=== PATIENT | female | born 1930 | race Caucasian/White ===

== ENCOUNTER 2017-05-31 10:00 | Emergency (ER) | payer MEDICAID, MEDICARE ==
[~2017-05-31] VITALS: Ht 152.4 cm; Wt 60.9 kg
[2017-05-31] MEDS ORDERED: FISH OIL PO (10:10)
[2017-05-31] MEDS ORDERED: VIT D PO (10:10)
[2017-05-31] MEDS ORDERED: ACETAMINOPHEN 325 MG TABLET PO ONE (12:15)
[2017-05-31] MEDS ORDERED: PERTUSS(ACELL),DIPH,TET VAC/PF 0.5 ML VIAL IM ONE (12:15)
[2017-05-31] MEDS ORDERED: HYDROCODONE/ACETAMINOPHEN 5-325 MG TABLET PO ONE (12:30)
[2017-05-31 12:40] LABS: BASOPHILS # (AUTO) 0.05 K/uL (0.00-0.20); BASOPHILS % (AUTO) 0.4 % (0.0-2.0); EOSINOPHILS # (AUTO) 0.26 K/uL (0.00-0.70); HEMATOCRIT 41.9 % (36-46); HEMOGLOBIN 13.7 g/dL (12.0-16.0); LYMPHOCYTES # (AUTO) 1.6 K/uL (1.0-4.8); LYMPHOCYTES % (AUTO) 14.6 % (22.0-44.0); MEAN CORPUSCULAR HEMOGLOBIN 30.1 pg (26.0-34.0); MEAN CORPUSCULAR HGB CONC 32.6 G/dL (31.0-37.0); MEAN CORPUSCULAR VOLUME 92 fL (80-100); MONOCYTES # (AUTO) 0.5 K/uL (0.1-1.0); MONOCYTES % (AUTO) 4.4 % (2.0-9.0); NEUTROPHILS # (AUTO) 8.8 K/uL (1.8-7.7); NEUTROPHILS % (AUTO) 78.3 % (40.0-70.0); PLATELET COUNT (AUTO) 256 K/uL (150-450); RED BLOOD CELL COUNT(AUTO) 4.54 MIL/uL (4.00-5.20); RED CELL DISTRIBUTION WIDTH 13.7 % (11.5-14.5)
[2017-05-31 12:59] LABS: CALCIUM, TOTAL 9.5 mg/dL (8.8-10.5); CREATININE 1.17 mg/dL (0.60-1.30); POTASSIUM 4.1 mmol/L (3.5-5.1)
[2017-05-31 13:06] LABS: ALBUMIN 3.6 g/dL (3.4-5.0); BILIRUBIN,TOTAL 0.4 mg/dL (0.1-1.0); TOTAL PROTEIN, SERUM 7.9 g/dL (6.4-8.2)
[2017-05-31] MEDS ORDERED: CLINDAMYCIN 600 MG/D5% WATER 50 ML IV ONE (13:45)
[2017-05-31 14:31] VITALS: BP 138/70
== END 2017-05-31 15:18 | disposition home or self-care (01) ==
LOC: EMS 10:01
DX: L03.114 Cellulitis of left upper limb (principal); R51 Headache
CPT/HCPCS: 36415; 80053; 85025; 90471; 90715; 96374; 99284; J3490